=== PATIENT | male | born 1975 | race Two or more races ===

== ENCOUNTER 2017-06-02 19:40 | Emergency (ER) | payer OTHER ==
[2017-06-02 20:00] VITALS: BP 130/74; PULSE 59; TEMP 98; BMI 32.5
[2017-06-02] MEDS ORDERED: morphine CARPU-JECT 2 MG/1 ML DISP.SYRIN IM ONE (22:52)
[2017-06-02] MEDS ORDERED: morphine CARPU-JECT 4 MG/1 ML DISP.SYRIN ONE (22:59)
--- NOTE | 2017-06-02 23:00 | PDOC ---
"History of Present Illness - General Chief Complaint: Injury Stated Complaint: LEG INJURY Time Seen by Provider: 06/02/17 22:26 History Source: Patient, Spouse, Tiller Man Used Exam Limitations: Language Barrier - History of Present Illness Initial Comments: 06/02/17 22:54 42yo Male patient with no significant past medical history presents to ED c/o right lower leg pain and swelling. Patient states experiencing an injury 10 years ago, and recently experienced exacerbation. He was seen and evaluated by Dr. Estefania Coleman MD. X-ray shows bone abnormality, and patient referred to Dr. Claus Reddy MD (Orthopedic). Patient states they have not seen this doctor, but did make an appointment. She also states patient is overusing his medication due to pain. Patient was prescribed Hydrocodone 5/325 on 05/21/2017 # 20 tabs, and presents today with only #3 tabs in bottle. Patient stated medication is not working and pain is worse. PCP-None. Occurred: reports: just prior to arrival Severity: reports: moderate Pain Location: reports: lower extremity (Right) Method of Injury: Yes: other (Work Related Injury 10years ago) Modifying Factors: improves with: pain medication. worse with: None, cold therapy, immobilization, rest, other Associated Symptoms (Fall): trouble walking Past History - Travel Traveled outside of the country in the last 30 days: No Close contact w/someone who was outside of country & ill: No - Past Medical History Allergies/Adverse Reactions: Allergies Allergy/AdvReac Type Severity Reaction Status Date / Time No Known Allergies Allergy Verified 06/02/17 20:00 Home Medications: Ambulatory Orders Hydrocodone/Acetaminophen [Hydrocodon-Acetaminoph 7.5-325] 1 each PO ASDIR 06/02 Ibuprofen [Motrin -] 200 mg PO QID 06/02/17 Oxycodone HCl/Acetaminophen [Percocet 10-325 mg Tablet] 1 each PO Q4H PRN #24 tablet MDD 6 tabs 06/03/17 Other medical history: denies - Psycho/Social/Smoking Cessation Hx Suicidal Ideation: No Smoking History: Current some day smoker Number of Cigarettes Smoked Daily: 1 Information on smoking cessation initiated: No Trauma Specific PMHX - Complaint Specific PMHX Arthritis: No Back Injury: No Neck Injury: No Hx Sacro Iliac Joint Dysfunction: No Review of Systems - Review of Systems Able to Perform ROS?: Yes Is the patient limited American proficient: No Musculoskeletal: Yes: Other (Right Leg Pain) All Other Systems: Reviewed and Negative *Physical Exam - Vital Signs Last Vital Signs Temp Pulse Resp BP Pulse Ox 98 F 59 L 18 130/74 99 06/02/17 19:54 06/02/17 19:54 06/02/17 19:54 06/02/17 19:54 06/02/17 19:54 - Physical Exam General Appearance: Yes: Nourished, Appropriately Dressed, Mild Distress. No: Apparent Distress, Moderate Distress, Severe Distress Respiratory/Chest: positive: Lungs Clear, Normal Breath Sounds. negative: Chest Tender, Respiratory Distress, Accessory Muscle Use, Labored Respiration, Rapid RR Cardiovascular: positive: Regular Rhythm, Regular Rate Musculoskeletal: positive: Normal Inspection. negative: CVA Tenderness, Decreased Range of Motion, Vertebral Tenderness Extremity: positive: Normal Capillary Refill, Normal Inspection, Normal Range of Motion, Tender (Lateral aspect of right leg.), Calf Tenderness. negative: Pedal Edema, Swelling, Erythema, Inflammation Integumentary: positive: Normal Color, Dry, Warm Neurologic: positive: hospitality internship II-XII NML intact, Fully Oriented, Alert, Normal Mood/ Affect, Normal Response, Motor Strength 5/5 ED Treatment Course - RADIOLOGY Radiology Studies Ordered: Category Date Time Status LOWER EXTREMITY CT W/O CONTR [CT] Stat CT Scan 06/02/17 22:52 Ordered DUPLEX VASCUL US-1 LEG [US] Stat Ultrasound 06/02/17 22:53 Ordered Progress Note - Progress Note Progress Note: The Drug Utilization Report below displays all of the controlled substance prescriptions, if any, that your patient has filled in the last twelve months. The information displayed on this report is compiled from pharmacy submissions to the Department, and accurately reflects the information as submitted by the pharmacies. This report was requested by: Ermias Lloyd | Reference #: [id number] Others' Prescriptions Patient Name: Thong Melvin Date: 1975 Address: [place] [address] Sex: Male Rx Written Rx Dispensed Drug Quantity Days Supply Prescriber Name 05/21/2017 05/31/2017 hydrocodone-ibuprofen 7.5-200 20 7 Oca, Sara Smith MD * - Drugs marked with an asterisk are compound drugs. If the compound drug is made up of more than one controlled substance, then each controlled substance will be a separate row in the table. *DC/Admit/Observation/Transfer Diagnosis at time of Disposition: Leg pain Qualifiers: Laterality: right Qualified Code(s): M79.604 - Pain in right leg - Discharge Dispostion Disposition: HOME Condition at time of disposition: Stable Admit: No - Prescriptions Prescriptions: Oxycodone HCl/Acetaminophen [Percocet 10-325 mg Tablet] 1 each PO Q4H PRN #24 tablet MDD 6 tabs PRN Reason: Severe Pain - Referrals Referrals: Mitch Moran MD [Staff Physician] - - Patient Instructions Printed Discharge Instructions: DI for Leg Pain Additional Instructions: Siga con syed ortopedista Dr. Reddy segn lo programado, o siga con la recomendacin del Dr. Hodges (ortopdico) que he adjuntado a syed instruccin de genie. [place] los medicamentos segn lo prescrito. Pruebe las compresas calientes al pedro afectada. Evite permanecer de pie o de rodillas de forma prolongada. Ingrid Motrin para el dolor segn sea necesario. Percocet para el dolor de la brecha. No use ms de lo que se prescribe. Descanse mucho. Sin trabajo x 4 worthy con descanso. Follow up with your orthopedist Dr. Reddy as scheduled, or follow up with Dr. Moran (orthopedic) referral I have attached to your discharge instruction. Take medications as prescribed. Try warm compresses to affected area. Avoid prolonged standing or kneeling. Take Motrin for pain as needed. Percocet for breakthrough pain. Do not use more than what is prescribed. Get plenty rest. No work x 4 days with rest. Print Language: SINGAPORE[place] - Post Discharge Activity Work/School Note: Back to Work"
== END 2017-06-03 01:35 | disposition home or self-care (01) ==
LOC: JER 19:40 → JERFT 19:40 → JER 06-03 01:35
PROC: 3E023NZ Introduction of Analgesics, Hypnotics, Sedatives into Muscle, Percutaneous Approach (ICD-10-PCS; principal; 2017-06-02)
DX: M79.604 Pain in right leg (principal); T14.90 Injury, unspecified; X58.XXXS Exposure to other specified factors, sequela; Y93.9 Activity, unspecified; Y92.89 Other specified places as the place of occurrence of the external cause; Y99.0 Civilian activity done for income or pay
CPT/HCPCS: 73700-TC-RT; 93971-TC; 99281-25